=== PATIENT | female | born 1980 | race Caucasian/White ===

== ENCOUNTER 2017-05-20 18:49 | Emergency (ER) | payer OTHER ==
[~2017-05-20] VITALS: Ht 165.1 cm; Wt 75.7 kg
[2017-05-20] MEDS ORDERED: SODIUM CHLORIDE 0.9% 1,000 ML IV ONE (19:19)
[2017-05-20] MEDS ORDERED: FAMOTIDINE 20 MG/2 ML ONE (19:25)
[2017-05-20] MEDS ORDERED: ONDANSETRON 2MG/ML, 2ML ONE (19:25)
[2017-05-20] MEDS ORDERED: ONDANSETRON 2MG/ML, 2ML IVPush ONE (19:30)
[2017-05-20] MEDS ORDERED: FAMOTIDINE 20 MG/2 ML IVP ONE (19:30)
[2017-05-20] MEDS ORDERED: SODIUM CHLORIDE 0.9% 1,000ML IVBOLUS ONE (19:30)
[2017-05-20] MEDS ORDERED: SODIUM CHLORIDE FLUSH 10ML SYR IVF ONE (19:30)
[2017-05-20 19:34] LABS: PATH.CAST-FLAG NOT PRESENT; SPERM-FLAG NOT PRESENT; SRC-FLAG NOT PRESENT; XTAL-FLAG NOT PRESENT; YLC-FLAG NOT PRESENT
[2017-05-20 20:06] LABS: HEMATOCRIT 46.1 % (34.6-47.8); HEMOGLOBIN 15.2 g/dL (11.7-16.4); WHITE BLOOD COUNT 10.1 x10^3/uL (3.4-10)
[2017-05-20 20:19] LABS: ASPARTATE AMINO TRANSFERASE 14 U/L (15-37); BLOOD UREA NITROGEN 15 mg/dL (7-18)
[2017-05-20 20:44] VITALS: BP 123/73
== END 2017-05-20 20:54 | disposition home or self-care (01) ==
LOC: ED 20:48
DX: K52.9 Noninfective gastroenteritis and colitis, unspecified (principal); J02.0 Streptococcal pharyngitis
CPT/HCPCS: 36415; 76700; 80053; 81001; 83690; 84703; 85025; 96361; 96374; 96375; 99285; J2405; J7030; S0028